=== PATIENT | male | born 1975 | race Caucasian/White ===

== ENCOUNTER → 2024-01-10 06:36 | Day surgery (SDC) | payer BC, SELFPAY | LOC: GI 06:36 | PROVIDERS: ATTENDING PHYSICIAN Internal Medicine Gastroenterology | DX: K20.90 Esophagitis, unspecified without bleeding (principal); K22.89 Other specified disease of esophagus; K31.7 Polyp of stomach and duodenum | CPT/HCPCS: 43239; 88305 ==

== ENCOUNTER 2024-04-01 07:54 | Emergency (ER) | payer BC, SELFPAY ==
[2024-04-01 07:59] VITALS: BP 119/82
--- NOTE | 2024-04-01 08:13 | ED.GENMED ---
History of Present Illness
General
Chief Complaint: Skin Problem
Time Seen by Provider: 04/01/24 08:09
Travel History
Have you had any contact with someone who has COVID-19?: No
Do you have any symptoms of coronavirus? Fever > 100 degrees, chills, cough, shortness of breath, sore throat, loss of taste or smell, muscle aches, or headache?: No
History of Present Illness
History of Present Illness:
HPI: Patient presents due to a rash that started 3 days ago after doing yard work. However he frequently does yard work weekly, but also notes that his neighbor did pull out some landscaping recently which may be a contributing factor. He did not
take anything for symptoms as initially they were not all that bad. He has not taken any Benadryl and is not currently on steroids. However over the last 24 hours, the symptoms have worsened. He reports no trouble.
EXAM:
GENERAL: Well appearing in mild distress due to pruritus
HEENT: Moist oral mucosa, widely patent posterior oropharynx
CARDIOVASCULAR: No murmurs, normal heart rate, regular rhythm, No chest wall tenderness
PULMONARY: No respiratory distress, breath sounds are clear and equal
ABDOMEN: Soft with no peritoneal signs, no tenderness
NEUROLOGIC: Excellent strength all extremities, no coordination deficits
PSYCHIATRIC: Appropriate mental status, normal insight and judgement
EXTREMITIES: Nontender, no edema, moves all extremities equally
SKIN: There is extensive urticarial type of rash
TIME OF INITIAL ENCOUNTER:
NUMBER AND COMPLEXITY OF PROBLEMS ADDRESSED AT THE ENCOUNTER
� Chronic conditions affecting care: GERD, has had ACL repair, on Dupixent for EOE
� Acute Exacerbation and/or Progression of Chronic Illness: This is an acute problem
� Differential Diagnosis includes: Contact dermatitis, anaphylaxis not noted, eczema, cellulitis unlikely
AMOUNT AND/OR COMPLEXITY OF DATA TO BE REVIEWED AND ANALYZED
� I performed an independent evaluation of and my interpretation is:
EKG:
CT:
X-rays:
Laboratory Studies:
Other:
� Review of other/old records: He did have endoscopy for eosinophilic esophagitis 3 months ago.
� Clinical information was obtained by an independent historian: I spoke to at bedside
� Prescriptions/Medications Considered but not given:
� Further testing considered but not performed: No clear indication for lab work at this time
RISK OF COMPLICATIONS AND/OR MORBIDITY OR MORTALITY OF PATIENT MANAGEMENT
� Social determinants of health affecting care: Lives at home
� Discussion with other providers:
� Escalation of care including admission/observation vs risk of discharge considered: The patient has rather debilitating pruritus but a relatively benign appearing rash. However, it is rather extensive. I recommend starting
steroids. He did not take anything earlier for pain.
Phy Exam
Physical Exam
Physical Exam:
See HPI
Course
Orders/Labs/Results
Orders:
Orders
04/01/24 08:19
Diphenhydramine [Benadryl] 25 mg PO NOW STA
Famotidine [Pepcid] 20 mg PO NOW STA
Prednisone [Deltasone] 50 mg PO NOW STA
Vital Signs
Initial and Last Documented VS:
Initial Vital Signs
Temp Pulse Resp BP
97.5 F 51 17 119/82
04/01/24 07:59 04/01/24 07:59 04/01/24 07:59 04/01/24 07:59
Last Documented Vital Signs
Temp Pulse Resp BP
97.5 F 51 17 119/82
04/01/24 07:59 04/01/24 07:59 04/01/24 07:59 04/01/24 07:59
*Critical Care Note
Total Time (30-74mins, 75-104mins- exclusive of procedures): Not Applicable
ED Attending Note
-
Portions of this chart may have been created with voice recognition software.� Occasional wrong word or��sound alike� substitutions may have occurred due to the inherent limitations of voice recognition software.
Discharge Plan
Departure
Patient Disposition: Home (Routine Discharge)
Date of Disposition: 04/01/24
Time of Disposition: 08:20
Patient with high blood pressure during this ER visit?: Yes
Discharge Problem:
Dermatitis
Instructions: Contact dermatitis
Prescriptions:
New
prednisone 10 mg tablet
10 mg PO DIRECTED Qty: 30 0RF
Rx Instructions:
4 tabs daily for 3 days, 3 tabs daily for 3 days, 2 tabs daily for 3 days, 1 tab daily for 3 days
Activity Restrictions/Additional Instructions:
I recommend starting a course of steroids. I sent this to your pharmacy. I also recommend taking [id number] Benadryl and Pepcid as further histamine blockers for more immediate relief. Steroids take a few hours to start working. Consider
following up with an tube cutter operator.
Interventions
Interventions:
*Risk Screen - Suicide Last Done: 04/01/24 08:14
*General Assessment Last Done: 04/01/24 08:14
*Neglect/Abuse Screening Last Done: 04/01/24 08:14
ED- Fall Risk Assessment Last Done: 04/01/24 08:15
*ED COVID-19 Vaccine History Last Done: 04/01/24 08:14
ED-Skin Assessment Last Done: 04/01/24 08:14
Discharge Date and Time
Print Language: ROMANSH
[2024-04-01] MEDS: DELTASONE 50 MG PO (08:48)
[2024-04-01] MEDS: BENADRYL 25 MG PO (08:48)
[2024-04-01] MEDS: PEPCID 20 MG PO (08:48)
== END 2024-04-01 08:58 | disposition home or self-care (01) ==
LOC: EMR 07:54
PROVIDERS: EMERGENCY PHYSICIAN Emergency Medicine; FAMILY PHYSICIAN Family Medicine
DX: L30.9 Dermatitis, unspecified (principal); R03.0 Elevated blood-pressure reading, without diagnosis of hypertension
CPT/HCPCS: 99283

== ENCOUNTER → 2024-11-01 06:22 | Day surgery (SDC) | payer BC, SELFPAY | LOC: GI 06:22 | PROVIDERS: ATTENDING PHYSICIAN Internal Medicine Gastroenterology | DX: K20.0 Eosinophilic esophagitis (principal) | CPT/HCPCS: 43239; 88305 ==

== ENCOUNTER → 2025-09-16 07:33 | Outpatient (REF) | payer BC, SELFPAY | LOC: RAD 07:33 | PROVIDERS: ATTENDING PHYSICIAN Orthopaedic Surgery; FAMILY PHYSICIAN Family Medicine | DX: Z01.89 Encounter for other specified special examinations (principal) | CPT/HCPCS: 70030 ==